=== PATIENT | female | born 1990 | race Caucasian/White ===

== ENCOUNTER 2020-05-07 19:28 | Emergency (ER) | payer OTHER ==
[~2020-05-07] VITALS: Ht 162.6 cm; Wt 54.9 kg
[2020-05-07] MEDS ORDERED: LEVSIN/SL0.125 MG SL (22:06)
[2020-05-07] MEDS ORDERED: CIPRO500 MG PO (22:06)
[2020-05-07] MEDS ORDERED: PEPCID AC20 MG PO (22:06)
== END 2020-05-07 22:33 | disposition home or self-care (01) ==
LOC: ER 19:28
DX: K81.9 Cholecystitis, unspecified (principal)

== ENCOUNTER 2020-05-31 08:29 | Outpatient (CLI) | payer OTHER ==
[~2020-05-31 08:29] MED LIST: CIPRO500 MG PO; LEVSIN/SL0.125 MG SL; PEPCID AC20 MG PO
== END 2020-05-31 08:42 | disposition home or self-care (01) ==
LOC: NUCLEAR 08:29
PROVIDERS: ATTEND Surgery
DX: R10.11 Right upper quadrant pain (principal)
CPT/HCPCS: 78227; A9537

== ENCOUNTER 2020-10-18 19:42 | Emergency (ER) | payer OTHER ==
[~2020-10-18] VITALS: Ht 162.6 cm; Wt 54.9 kg
== END 2020-10-18 22:22 | disposition home or self-care (01) ==
LOC: ER 19:42
DX: S00.83XA Contusion of other part of head, initial encounter (principal); W22.8XXA Striking against or struck by other objects, initial encounter; Y93.89 Activity, other specified; Y92.69 Other specified industrial and construction area as the place of occurrence of the external cause; Y99.8 Other external cause status

== ENCOUNTER 2021-01-11 10:39 | Emergency (ER) | payer OTHER ==
[~2021-01-11] VITALS: Ht 162.6 cm; Wt 54.0 kg
[2021-01-11] MEDS ORDERED: MUPIROCIN1 G1 TOP (13:59)
[2021-01-11] MEDS ORDERED: BACTRIM 400-801 EACH PO (13:59)
== END 2021-01-11 14:11 | disposition home or self-care (01) ==
LOC: ER 10:39
DX: H60.392 Other infective otitis externa, left ear (principal); Z20.822 Contact with and (suspected) exposure to COVID-19

== ENCOUNTER 2024-05-06 13:45 | Emergency (ER) | payer OTHER ==
[~2024-05-06] VITALS: Ht 165.1 cm; Wt 58.5 kg
[~2024-05-06 13:45] MED LIST changes: +BACTRIM 400-801 EACH PO; +MUPIROCIN1 G1 TOP
[2024-05-06] MEDS ORDERED: HYOSCYAMINE SULFATE 0.125 MG TAB.SUBL ONE (16:29)
[2024-05-06] MEDS ORDERED: ONDANSETRON HCL 2 MG/ML VIAL ONE (16:29)
[2024-05-06] MEDS ORDERED: FAMOTIDINE/PF 20 MG/2 ML VIAL ONE (16:29)
[2024-05-06] MEDS ORDERED: 0.9 % SODIUM CHLORIDE 1,000 ML IV SCH (16:30)
[2024-05-06] MEDS ORDERED: HYOSCYAMINE SULFATE 0.125 MG TAB.SUBL SL ONE (16:30)
[2024-05-06] MEDS ORDERED: ONDANSETRON HCL 2 MG/ML VIAL IV ONE (16:30)
[2024-05-06] MEDS ORDERED: FAMOTIDINE/PF 20 MG/2 ML VIAL IV PUSH ONE (16:30)
[2024-05-06 17:31] LABS: HEMOGLOBIN 12.7 g/dL (12.0-15.00); MEAN CELL VOLUME 83.9 fL (80.00-100.00); MEAN CORPUSCULAR HEMOGLOBIN 27.3 pg (27.00-32.0); MEAN CORPUSCULAR HGB CONC 32.6 g/dl (32.0-36.0); PLATELET COUNT 259 K/uL (150-450); RED BLOOD COUNT 4.65 M/uL (4.00-6.00)
[2024-05-06 17:37] LABS: RED CELL DISTRIBUTION WIDTH 16.2 % (11.5-14.5)
[2024-05-06 17:55] LABS: BILIRUBIN TOTAL 0.76 mg/dL (0.3-1.2); CREATININE SERUM 0.64 mg/dL (0.55-1.02); GFR 107.54; GLOBULINA 4.3 G/DL (2.4-3.5); POTASSIUM 3.72 mEq/L (3.5-5.1); TOTAL PROTEIN 8.3 gm/dL (6.4-8.2)
== END 2024-05-06 20:44 | disposition home or self-care (01) ==
LOC: ER 13:48
PROVIDERS: Emergency Medicine
DX: K52.9 Noninfective gastroenteritis and colitis, unspecified (principal); Z88.0 Allergy status to penicillin